=== PATIENT | female | born 1955 | race Caucasian/White ===

== ENCOUNTER → 2018-03-08 | Outpatient (CLI) | payer OTHER ==
[~2018-03-08] MED LIST: AMLO10 PO; ASPI81EC PO; DULO30 PO; ESTNOR PO; HYDCHL25 PO; LEVSOD137 PO; LORPSEER24 PO; METCAR500 PO; OXYACE5T PO; SPIR25 PO
[2018-03-09 22:12] LABS: CHLAMYDIA TRACHOMATIS, NAA Negative (Negative); NEISSERIA GONORRHOEAE, NAA Negative (Negative)
== END | disposition home or self-care (01) ==
LOC: LAB SHORT 11:16 → LAB 11:16
DX: R30.0 Dysuria (principal)
CPT/HCPCS: 87086; 87491; 87529; 87591

== ENCOUNTER 2018-07-15 11:59 | Emergency (ER) | payer OTHER ==
[~2018-07-15] VITALS: Ht 165.1 cm; Wt 81.7 kg
[2018-07-15] MEDS ORDERED: METO25ER PO (14:01)
[2018-07-15] MEDS ORDERED: VENL75ER PO (14:02)
== END 2018-07-15 16:18 | disposition short-term general hospital (02) ==
LOC: ER 11:59
DX: S06.5X1A Traumatic subdural hemorrhage with loss of consciousness of 30 minutes or less, initial encounter (principal); S02.119A Unspecified fracture of occiput, initial encounter for closed fracture; W11.XXXA Fall on and from ladder, initial encounter; I10 Essential (primary) hypertension; Z88.5 Allergy status to narcotic agent; Z79.899 Other long term (current) drug therapy; Z79.891 Long term (current) use of opiate analgesic; Z79.82 Long term (current) use of aspirin
CPT/HCPCS: 36415; 70450; 72125; 96374; 96375; 99285-25; J2060; J2405; J3010